=== PATIENT | female | born 1985 | race Caucasian/White ===

== ENCOUNTER 2020-03-08 05:10 | Emergency (ER) | payer MEDICAID ==
[~2020-03-08] VITALS: Ht 149.9 cm; Wt 64.0 kg
[2020-03-08 06:28] LABS: EOSINOPHILS % 1.1 % (0.0-5.0); HEMATOCRIT. 42.3 % (36.0-48.0); HEMOGLOBIN. 14.8 g/dL (12.0-16.0); LYMPHOCYTES % 22.4 % (20.0-50.0); MEAN CORPUSCULAR VOLUME 85.8 fL (81.0-99.0); MEAN PLATELET VOLUME 9.3 fl (7.4-10.4); MONOCYTES % 3.8 % (2.0-8.0); NEUTROPHILS % 71.7 % (40.0-76.0); PLATELET 246 x1000/uL (130-400); RED BLOOD CELL COUNT 4.93 mill/uL (4.2-5.4); RED CELL DISTRIBUTION WIDTH 13.4 % (11.6-14.6)
[2020-03-08 06:30] LABS: CHLORIDE 108 mEq/L (98-107)
[2020-03-08 06:34] LABS: ETHANOL BLOOD < 10 mg/dL
[2020-03-08 07:18] LABS: CLARITY URINE CLOUDY (CLEAR); COLOR URINE RED (YELLOW); KETONES URINE NEGATIVE (NEGATIVE); LEUKOCYTE ESTERASE URINE 2+ (NEGATIVE); NITRITE URINE NEGATIVE (NEGATIVE); OCCULT BLOOD URINE 3+ (NEGATIVE); PH URINE 7.5 (4.5-8.0); PROTEIN URINE 1+ (NEGATIVE); SPECIFIC GRAVITY URINE 1.019 (1.005-1.030); UROBILINOGEN URINE 0.2 E.U./dL (0.2-1.0)
[2020-03-08 07:54] LABS: CANNABINOID URINE SCREEN NEGATIVE (NEGATIVE); PHENCYCLIDINE URINE SCREEN NEGATIVE (NEGATIVE)
[2020-03-08 07:55] LABS: *AMPHETAMINES SCREEN URINE NEGATIVE (NEGATIVE); *BARBITURATES SCREEN URINE NEGATIVE (NEGATIVE); *BENZODIAZEPINES SCREEN URINE NEGATIVE (NEGATIVE); *COCAINE SCREEN URINE NEGATIVE (NEGATIVE); METHADONE URINE SCREEN NEGATIVE (NEGATIVE); OPIATES URINE SCREEN NEGATIVE (NEGATIVE)
[2020-03-08] MEDS ORDERED: NITROFURANTOIN 100MG M/M CAPSULE PO ONE ×2 (13:45→15:00)
[2020-03-08] MEDS ORDERED: ACETAMINOPHEN 325MG TABLET PO ONE (21:00)
[2020-03-08] MEDS: NITROFURANTOIN 100MG M/M CAPSULE PO SCH (21:28)
[2020-03-09 00:19] LABS: HCG SCREEN NEGATIVE
[2020-03-09] MEDS: NITROFURANTOIN 100MG M/M CAPSULE PO SCH ×2 (09:00→21:00)
[2020-03-10] MEDS ORDERED: ACETAMINOPHEN 325MG TABLET PO ONE (03:15)
[2020-03-10] MEDS: NITROFURANTOIN 100MG M/M CAPSULE PO SCH ×2 (09:45→21:56)
[2020-03-11] MEDS: NITROFURANTOIN 100MG M/M CAPSULE PO SCH ×2 (13:36→21:33)
[2020-03-12] MEDS: NITROFURANTOIN 100MG M/M CAPSULE PO SCH (10:03)
[2020-03-12 10:17] VITALS: BP 118/60
== END 2020-03-12 10:19 | disposition home or self-care (01) ==
LOC: ER 05:10
DX: R45.851 Suicidal ideations (principal); T50.992A Poisoning by other drugs, medicaments and biological substances, intentional self-harm, initial encounter; Y92.9 Unspecified place or not applicable; N39.0 Urinary tract infection, site not specified; F32.9 Major depressive disorder, single episode, unspecified
CPT/HCPCS: 36415; 80053; 80305; 80307; 80320; 80329; 81003; 82962; 84703; 85025; 99285; G0480